=== PATIENT | male | born 1980 | race Caucasian/White ===

== ENCOUNTER 2022-05-15 12:10 | Emergency (ER) | payer OTHER ==
[~2022-05-15] VITALS: Ht 169.9 cm; Wt 89.0 kg
[2022-05-15 12:38] VITALS: BP 135/86
--- NOTE | 2022-05-15 12:48 | NUR ---
MARIA. HANDED ON URINE CUP.
[2022-05-15 14:54] LABS: BASOPHILS % (AUTO) 0.5 % (0.0-2.0); EOSINOPHILS # (AUTO) 0.2 K/uL (0-0.4); EOSINOPHILS % (AUTO) 2.3 % (0.0-4.0); HEMATOCRIT 50.1 % (36-52); HEMOGLOBIN 17.5 g/dL (12.0-18.0); LYMPHOCYTES # (AUTO) 1.7 K/uL (2.0-11.5); LYMPHOCYTES % (AUTO) 21.6 % (20.5-51.1); MEAN CORPUSCULAR HEMOGLOBIN 31 pg (27-31); MEAN CORPUSCULAR HGB CONC 35 g/dL (33-37); MEAN CORPUSCULAR VOLUME 87.5 fL (80-94); MONOCYTES # (AUTO) 0.7 K/uL (0.8-1.0); NEUTROPHILS # (AUTO) 5.2 K/uL (1.8-7.7); NEUTROPHILS % (AUTO) 66.6 % (42.2-75.2); PLATELET COUNT (AUTO) 315 K/uL (140-450); RED BLOOD CELL COUNT(AUTO) 5.73 MIL/uL (4.20-6.10); RED CELL DISTRIBUTION WIDTH 13.9 % (11.6-13.7); WHITE BLOOD COUNT (AUTO) 7.8 K/uL (4.8-10.8)
[2022-05-15 15:01] LABS: ANION GAP 14.5 (8-16); CARBON DIOXIDE 27.3 mmol/L (21-32); CREATININE 0.9 mg/dL (0.6-1.3); POTASSIUM 4.8 mmol/L (3.5-5.1); TOTAL BILIRUBIN 0.7 mg/dL (0.0-1.0)
--- NOTE | 2022-05-15 15:27 | NUR ---
PT TO ER BED 12
--- NOTE | 2022-05-15 15:30 | NUR ---
41 y/o male bib self, pt referred from clinic to er for h pylori infection in relation to hx and current c/o of epigastric pain for 4 months. pt a&ox4, kenyan speaking, ambulates with steady gait. pmh: h pylori nka
[2022-05-15] MEDS ORDERED: AMOX500C25 PO (16:18)
[2022-05-15] MEDS ORDERED: CLAR500T14 PO (16:18)
[2022-05-15] MEDS ORDERED: OMEP20EC11 PO (16:18)
[2022-05-15] MEDS ORDERED: METR-520 PO (16:19)
[2022-05-15] MEDS ORDERED: SUCR1TAB35 PO (16:24)
[2022-05-15 16:59] VITALS: BP 135/86
--- NOTE | 2022-05-15 17:00 | NUR ---
Patient discharged with v/s stable. Written and verbal after care instructions given and explained. Patient alert, oriented and verbalized understanding of instructions. Ambulatory with steady gait. All questions addressed prior to discharge. ID band removed. Patient advised to follow up with PMD. Rx of omeprazole, sucralfate (sent) given. Patient educated on indication of medication including possible reaction and side effects. Opportunity to ask questions provided and answered.
[2022-05-15 17:39] LABS: APPEARANCE,URINE CLEAR (CLEAR); BILIRUBIN,URINE NEGATIVE (NEGATIVE); BLOOD, URINE NEGATIVE (NEGATIVE); COLOR,URINE YELLOW (YELLOW); LEUKOCYTE ESTERASE ,URINE NEGATIVE (NEGATIVE); NITRITE, URINE NEGATIVE (NEGATIVE); UGLUCOSE NEGATIVE (NEGATIVE)
== END 2022-05-15 16:59 | disposition home or self-care (01) ==
LOC: MED 12:10
DX: K21.9 Gastro-esophageal reflux disease without esophagitis (principal); R10.9 Unspecified abdominal pain; Z79.899 Other long term (current) drug therapy
CPT/HCPCS: 36415; 80053; 81003; 82150; 83690; 85025; 99283